=== PATIENT | male | born 1960 | race Caucasian/White ===

== ENCOUNTER 2022-01-03 09:01 | Inpatient (IN) | payer BC, SELFPAY ==
[2022-01-03] VITALS (9 sets, daily range): BP systolic 139–155; BP diastolic 84–96; PULSE 58–75; RESP 13–20; TEMP 36.2–36.9; O2SAT 93–100
--- NOTE | ~2022-01-03 | XR_ITS ---
EXAMINATION: XR chest 2V DATE: 01/03/2022 09:31 INDICATION: Chest pain and tightness. Right upper quadrant abdominal pain. TECHNIQUE: PA and lateral views of the chest were obtained. COMPARISON: Chest radiograph dated 11/24/2009 FINDINGS: Minimal biapical pleural-parenchymal scarring. No other airspace opacities, pulmonary edema, pleural effusion or pneumothorax. The cardiomediastinal silhouette is normal. Tortuous thoracic aorta. Old po sterior right eighth rib fracture. Minimal anterior wedging of a few mid thoracic vertebral bodies. IMPRESSION: 1. No acute cardiopulmonary disease. Reviewed, dictated and finalized at location B.
--- NOTE | ~2022-01-03 | US_ITS ---
EXAMINATION: US abdomen limited EXAM DATE: 01/03/2022 09:52 INDICATION: Chest/abdominal pain. TECHNIQUE: Multiple grayscale and Doppler images of the abdomen right upper quadrant were obtained (b y a technologist who performed the scan) and subsequently reviewed. There is no prior study for tank christianson. FINDINGS: The pancreatic head and body are normal in appearance. The pancreatic tail is not visualized. The l iver has normal echogenicity and contour. There are no focal liver lesions identified. There is no evidence of intrahepatic biliary duct dilation. Portal venous flow was seen in the hepatopedal, nor mal direction and has normal Doppler waveform. No right-sided hydronephrosis. Common bile duct measures 9 mm, mildly dilated. The gallbladder wall measures 2-3 mm in thickness, wi thin normal limits, but with moderate amount of distention. No sonographic evidence of pericholecyst ic fluid. Multiple layering small gallstones. Technologist performing exam reports patient did not demonstrate sonographic Keller's sign. Please note that this sign is less reliable in patients who h ave received pain medication. IMPRESSION: Cholelithiasis. Moderately distended gallbladder and mild common bile duct dilation. No s onographic Keller sign demonstrated. Can't exclude choledocholithiasis, check bilirubin levels. Reviewed, dictated and finalized at location A. IMPRESSION: Cholelithiasis. Moderately distended gallbladder and mild common bi le duct dilation. No sonographic Keller sign demonstrated. Can't exclude choled ocholithiasis, check bilirubin levels.
--- NOTE | ~2022-01-03 | CT_ITS ---
EXAMINATION: CT abdomen pelvis w con DATE: 01/03/2022 11:27 INDICATION: Epigastric and right upper quadrant abdominal pain. Acute pancreatitis. TECHNIQUE: Computed tomography (CT) of the abdomen and pelvis was performed with 100 mL Omnipaque 350 intravenous contrast. Automated exposure control and iterative reconstruction technique were employe d. The dose-length product was 456.97 mGy-cm. COMPARISON: Ultrasound 01/03/2022 FINDINGS: The visualized portions of the lung bases demonstrate mild atelectasis. No pleural effusion . The heart size is normal. No pericardial effusion. There is a 5 mm cyst in the liver. The gallbladd er is distended. Gallbladder wall thickening is noted. Gallstones were seen on today's ultrasound. Th e common duct is dilated to 10 mm. Calcifications in the spleen are consistent with old granulomatous disease. The pancreas, adrenal glands, and kidneys are normal. The prostate is mildly enlarged. Ther e are no dilated loops of bowel. The appendix is normal. There are no pathologically enlarged lymph n odes. There is no free intraperitoneal fluid. There is severe degenerative disc disease at L5-S1. IMPRESSION: 1. Normal pancreas. 2. Mildly dilated common duct. 3. Acute cholecystitis. Reviewed, dictated and finalized at location A.
--- NOTE | ~2022-01-03 | MR_ITS ---
EXAMINATION: MR MRCP wo/w con/w 3D wo ind DATE: 01/03/2022 17:21 INDICATION: Gallstone pancreatitis. Abdominal pain. TECHNIQUE: Magnetic resonance imaging (MRI) of the abdomen was performed without and with 17 mL Multi Evans intravenous contrast. Sequences included coronal T2-weighted FS FSE, coronal T2-weighted FSE, a xial T1-weighted LAVA, coronal FS FIESTA, axial dual-echo T1-weighted SPGR, coronal lava-FLEX, sagitt al T2-weighted FSE, axial T2-weighted FSE, and axial DWI. Thick-slab T2-weighted FSE images were obta ined for magnetic resonance cholangiopancreatography (MRCP). Maximum intensity projection 3-D reconst ructions of the volumetric data were created by the technologist. Postcontrast sequences included cor onal LAVA-flex and time course of axial T1-weighted LAVA. COMPARISON: CT abdomen and pelvis 01/03/2022 FINDINGS: ABDOMEN MRI: There are cysts in the liver measuring up to 5 mm. There is periportal edema in the live r. The gallbladder is distended and contains gallstones. Gallbladder wall thickening is noted. There is edema around the lety hepatis and adjacent to the head of the pancreas. The pancreas enhances thr oughout. Calcifications in the spleen are consistent with old granulomatous disease. The adrenal glan ds and kidneys are normal. There is a 2.7 x 1.4 cm cyst between the inferior vena cava and aorta, lik bryanna a lymphangioma. There are no dilated loops of bowel. There are no pathologically enlarged lymph n odes. There is no free intraperitoneal fluid. ABDOMEN MRCP: The common duct measures 8 mm. No choledocholithiasis. IMPRESSION: 1. Acute cholecystitis. 2. Acute interstitial pancreatitis. 3. Mildly dilated common duct. No choledocholithiasis. Reviewed, dictated and finalized at location A.
--- NOTE | 2022-01-03 09:16 | ECG_ITS ---
Measurements Intervals [place] Rate: 59 P: 44 LA: 188 QRS: 4 QRSD: 101 T: 37 QT: 422 QTc: 421 Interpretive Statements SINUS BRADYCARDIA NO PREVIOUS ECG AVAILABLE FOR COMPARISON Electronically Signed On 01-03-2022 11:40:50 CDT by Austin Thayer M.D.
--- NOTE | 2022-01-03 09:25 | PC.NURSE ---
Pt to XRAY via stretcher at this time.
--- NOTE | 2022-01-03 09:31 | ED.CHESTPAIN ---
HPI - Chest Pain General Chief Complaint: Chest Pain Stated Complaint: abd pain, n/v Time Seen by Provider: 01/03/22 09:12 Source: patient and family Mode of arrival: ambulatory Limitations: no limitations History of Present Illness HPI narrative: 61-year-old male presents emergency room he is accompanied by his . He comes in because he been having these episodes of epigastric and chest discomfort. He has had approximately 4 episodes total of the one that occurred last night was a long as yet. He described it as a very heavy pressure across the anterior lower portion of his chest. He has no radiation of the pain into his back. He did get nauseated and vomited with the episodes. He believes it could be his gallbladder. His son had similar type symptoms and when they did an evaluation of him found out he had a very small cystic duct which was causing his problems and told him it could be hereditary. He denies any chills or fevers. He is extremely active man he walks 4 miles frequently every day of the week and never has symptoms he also rides his bicycle up to 15 to 50 miles at a time at a very high speed and never has any chest pain or shortness of breath associated with that. He is pain-free at this time. He never has any exertional chest pain. Has no food intolerances. His physician is retired he is currently does not have a physician. Related Data Allergies Allergy/AdvReac Type Severity Reaction Status Date / Time No Known Allergies Verified 01/03/22 09:06 Review of Systems Review of Systems: CONSTITUTIONAL: Denies fever, chills, or sweats. EYES: Denies visual changes, redness, or discharge. ENT: Denies rhinorrhea, congestion, sore throat, or otalgia. CARDIOVASCULAR: Denies palpitations, or edema. Chest pain associated with the symptoms he describing. RESPIRATORY: Denies cough or dyspnea. GASTROINTESTINAL: Has some nausea and vomiting. No diarrhea. Some epigastric pain. GENITOURINARY: Denies dysuria or hematuria. SKIN: Denies rash or itching. MUSCULOSKELETAL: Denies back pain, joint pain, or myalgia. NEUROLOGIC: Denies headache, numbness, or weakness. PSYCHIATRIC: Denies anxiety or depression. [facility] Past Medical History Medical History Hernia Family History Family History Mother Hypertension Social History Social History Smoking status: Never smoker Alcohol intake: never Exam Narrative: APPEARANCE: Well appearing, no pain or distress, well-nourished. Head normocephalic and atraumatic. EYES: PERRLA/EOMI, conjunctivae very clear. NOSE: Normal with no drainage EARS:TMS clear Francie Delaney, with good light reflex. THROAT: Pharynx clear, no exudate. NECK: Supple. No adenopathy, no masses. RESPIRATORY: Airway patent, respirations nonlabored. Clear to auscultation bilaterally, no rales, rhonchi, wheezing. CARDIOVASCULAR: Regular rate and rhythm without murmurs, rubs, or gallops. ABDOMINAL: Soft, nontender, nondistended, no hepatosplenomegaly Musculoskeletal: Moves all extremities. Strength/ROM intact, No edema, No calf tenderness. NEURO: Alert. Cranial nerves II through XII intact. Normal gait. Good coordination. Nonfocal examination. SKIN:: Warm, dry. Normal Color PSYCHIATRIC: Normal affect/mood, normal interaction Course Vital Signs Vital signs: Vital Signs Temperature 97.2 F L 01/03/22 09:04 Pulse Rate 75 01/03/22 09:04 Respiratory Rate 18 01/03/22 09:04 Blood Pressure 140/84 01/03/22 09:04 Pulse Oximetry 100 01/03/22 09:04 Temperature 97.2 F L 01/03/22 09:04 Pulse Rate 66 01/03/22 10:23 Respiratory Rate 18 01/03/22 10:23 Blood Pressure 139/90 01/03/22 10:23 Pulse Oximetry 97 01/03/22 10:23 MDM - Chest Pain MDM Narrative Medical decision making narrative: Patient's work-up and evaluation reveals h
[2022-01-03 09:39] LABS: Basophils Percent Auto 0.2 % (0.2-1.2); Eosinophils Absolute Auto 0.1 K/mm3 (0-0.3); Eosinophils Percent Auto 0.6 % (0-4.4); Hematocrit 41.6 % (42.0-52.0); Hemoglobin 13.8 g/dL (14.0-18.0); Immature Granulocyte Absolute 0.02 K/mm3 (0.00-0.031); Immature Granulocyte Percent A 0.2 % (0-0.5); Lymphocytes Absolute Auto 1.02 K/mm3 (0.9-3.2); Lymphocytes Percent Auto 12.1 % (18.3-44.2); Mean Corpuscular HGB Conc 33.2 g/dl (32-36); Mean Corpuscular Volume 93.5 fl (80-100); Mean Platelet Volume 11.7 fl (7.4-10.4); Monocytes Absolute Auto 0.9 K/mm3 (0.1-0.6); Monocytes Percent Auto 10.6 % (2.6-8.5); Neutrophils Absolute Auto 6.4 K/mm3 (1.3-6.7); Neutrophils Percent Auto 76.3 % (45.5-73.1); Platelet Count Result 165 k/mm3 (150-375); Red Blood Count 4.45 M/mm3 (4.6-6.20); Red Cell Distribution Width 12.4 % (11.5-14.5); White Blood Count 8.4 K/mm3 (4.5-10.0)
[2022-01-03 09:49] LABS: Prothrombin Time 12.9 Seconds (11.1-14.7)
[2022-01-03 09:50] LABS: Partial Thromboplastin Time 31.8 SECONDS (22.3-36.8)
[2022-01-03 10:02] LABS: Troponin I < 0.012 ng/mL (0.000-0.034)
[2022-01-03 10:09] LABS: Alanine Aminotransferase 167 U/L (4-50); Alkaline Phosphatase 77 U/L (38-126); Anion Gap 5 mmol/L (8-16); Aspartate Amino Transferase 227 U/L (17-59); Bilirubin,Total 2.3 mg/dL (0.2-1.3); Blood Urea Nitrogen 12 mg/dL (9-20); Calcium 8.3 mg/dL (8.4-10.2); Carbon Dioxide 31 mmol/L (22-30); Chloride 103 mmol/L (98-107); Estimated CRCL calculation 96 ml/min; Estimated Glomerular Filt Rate > 60; Glucose 100 mg/dL (65-110); Potassium 3.5 mmol/L (3.4-5.0); Sodium 139 mmol/L (137-145)
[2022-01-03 10:31] LABS: Lipase 10767 U/L (23-300)
[2022-01-03] MEDS: SODIUM CHLORIDE 0.9% IV 1,000 ML 150 ML IV CONT ×2 (11:34→23:43)
[2022-01-03 12:36] LABS: Troponin I < 0.012 ng/mL (0.000-0.034)
--- NOTE | 2022-01-03 13:15 | PM.IMHP ---
H&P: HPI History of Present Illness Date/Time: 01/03/22 13:15 Chief Complaint: Abdominal pain. Narrative: This is a very active and healthy 61-year-old male who presented to the emergency department for evaluation of abdominal pain. Last evening he developed a heaviness and pressure-like sensation in the low sternal region which has since settled into the epigastrium. It seems to be a bit colicky in nature and can get quite severe however he is able to find temporary positions that seem to ease the discomfort. He has also been experiencing chills and reports nausea with multiple episodes of emesis. He was able to fall asleep last night around 22:00 however the pain returned and woke him from sleep at approximately 02:30. He was able to drink a 10 oz coffee and eat a small piece of bread this morning. He then attempted to go to work however the pain returned and he was feeling pretty bad and thus he decided to come in for evaluation. He is suspicious that it may be his gallbladder causing him issues and in fact he and his have been trying to find a pattern as to when these episodes occur however they have not noticed that is directly related to meals although his pain did start shortly after eating beans and rice for dinner last evening. His vital signs were stable on arrival to the ER. Pertinent labs include a mild elevation in total bilirubin, modest AST and ALT elevations, and a lipase of 10,767. Abdominal ultrasound showed cholelithiasis and a moderately distended gallbladder with mild common bile duct dilatation. A subsequent CT of the abdomen and pelvis showed acute cholecystitis with a normal pancreas and a mildly dilated common duct and he is being admitted in this setting. At the time my evaluation he is resting comfortably and has no pain whatsoever. Review of Systems Review of Systems: Twelve systems were reviewed. No fever. He denies cold and flu symptoms. No sick contacts. No chest pain or shortness of breath. No syncope or presyncope. No history of cardiac or pulmonary disease. He is extremely active and walks about 4 miles every day and he frequently goes on long bike rides up to 50 miles at a time. Except as documented, all other systems were reviewed and are negative. [facility] Past Medical History Medical History Healthy adult Surgical History Surgical History History of right inguinal hernia repair (11/30/09) With PHS mesh. Family History Family History Mother Hypertension Son Gallbladder disease Social History Social History Social History: Lives with family in [place]. Works for [employer]. Very active including long walks and bike rides. Surrogate decision maker: Leelee Maldonadoclaribel, spouse. Code status: Full code. Smoking status: Never smoker Alcohol intake: never Alcohol use details: Rare Substance use: never Spiritual care concerns: No Meds Home Medications and Allergies Home Medications Medication Instructions Recorded Confirmed Type No Home Medications 01/03/22 01/03/22 History Allergies Allergy/AdvReac Type Severity Reaction Status Date / Time No Known Allergies Verified 01/03/22 13:16 Vital Signs Vital Signs - 24 hr 01/03/22 09:04 01/03/22 09:17 01/03/22 10:23 Temperature 97.2 F L Pulse Rate 75 68 66 Respiratory Rate 18 18 Blood Pressure 140/84 139/90 Pulse Oximetry 100 97 01/03/22 11:34 01/03/22 12:31 Temperature Pulse Rate 58 L 64 Respiratory Rate 13 16 Blood Pressure 155/96 H 145/94 H Pulse Oximetry 100 100 Exam Narrative: General: Well-developed male sitting up in bed in no distress. Weight: 86.1 kg. BMI: 24.4. HEENT: Normocephalic, atraumatic. PERRL, EOMI. Sclerae anicteric. Oral mucosa is mois
--- NOTE | 2022-01-03 13:29 | ADMGEN ---
This patient, Kodi Hammond, was admitted to Medical Room 341-01. Patient/family oriented to hospital policies and general routines including ID bracelet, bed and alarms, visiting hours, pain management, procedures, bathroom and other care routines, personal items, smoking policy, room service/diet, and visiting hours. Information on how to activate the Rapid Response Team has been discussed. Patient/Family are encouraged to report perceived risks to care and to ask questions if they do not understand what they are told or what they should do.
--- NOTE | 2022-01-03 14:18 | PM.CNGS ---
Assessment and Plan Assessment and plan (1) Acute cholecystitis: Code(s): K81.0 - Acute cholecystitis Status: Acute Assessment and Plan: CT scan suggests acute cholecystitis with mild common duct dilatation. US showed cholelithiasis with gallbladder distention. Discussed all imaging with patient in detail. His WBC count is normal and he is afebrile. His abdominal pain has resolved. Considering the elevated LFTs and dilated common bile duct, we would agree with MRCP and GI consult at this time. Continue IV antibiotics, IV fluids, and analgesics as needed. If his MRCP shows no choledocholithiasis and GI has no plans for ERCP, then we could potentially proceed with surgery tomorrow. If he will need an ERCP, then we will plan accordingly depending on how he does following the ERCP. I discussed this with the patient, as well as our recommendation of proceeding with a laparoscopic cholecystectomy, possible open, possible IOC by Dr. Bailey under general anesthesia depending on the MRCP results. Description of the procedure, risks, benefits, expected outcomes, and expected recovery were discussed with the patient in detail. All questions were answered. Patient agrees to proceed with surgery when appropriate. Thank you for allowing us to see the patient in consultation and we will continue to follow along with you. (2) Acute gallstone pancreatitis: Code(s): K85.10 - Biliary acute pancreatitis without necrosis or infection Status: Acute Assessment and Plan: Lipase 10,000 on admission. Clinically improved since admission with his abdominal pain and nausea resolving already in the ER. No previous or current heavy alcohol use. He does not take any medications daily. It is felt this is likely biliary pancreatitis with evidence of gallstones and elevated LFTs on admission. Continue NPO status while awaiting MRCP, IV fluids, analgesics, and antiemetics as needed. Trend labs. (3) Transaminitis: Code(s): R74.01 - Elevation of levels of liver transaminase levels Status: Acute Assessment and Plan: LFTs elevated on admission with total bilirubin of 2.3. MRCP ordered and GI has been consulted. Will await their recommendations regarding the need for ERCP prior to planning cholecytectomy. Additional Plan I have discussed the patient's case and plan of care with Dr. Bailey. History of Present Illness Consult details Consult date: 01/03/22 Reason for consult: gallstones (biliary pancreatitis, possible acute cholecystitis, elevated LFTs) Requesting physician: Erwin Rubio, DO Narrative: This is a 61-year-old male who presented to the ER with complaints of abdominal pain and vomiting. He reports that yesterday for lunch, he had stir-trujillo vegetables and noodles. Around 3:30 pm, he began having mild discomfort across his upper abdomen. He then had beans and rice for dinner, and shortly after this, his pain worsened and he began having chest pressure with severe upper abdominal pain. He developed nausea and vomiting around 10:00 pm last night as well. The pain continued through the night and was keeping him from sleeping, therefore he got up around 2:00 am and decided to go into work around 4:00 am. His nausea improved, but his pain was persistent. He tried eating a piece of bread at work with coffee, and reportedly still felt bad. He reports his then encouraged him to come into the ER for evaluation. He reports having a few episodes of this similar type of abdominal pain in the past that was more mild and resolved at home. In the ER, RUQ ultrasound showed cholelithiasis with gallbladder distention and the common bile duct measured 9 mm. Chest x-ray showed no acute cardiopulmonary disease. Labs showed a WBC count of 8,400, total bilirubin 2.3, AST 227, ALT 167, alk phos 77, and lipase 10,767. Subsequently, a CT scan of the abdomen and pelvis was ordered and showed mildly dilated common duct, gallbladder wall thickening and
[2022-01-03 15:43] LABS: Troponin I < 0.012 ng/mL (0.000-0.034)
[2022-01-04] VITALS (15 sets, daily range): BP systolic 135–160; BP diastolic 71–97; PULSE 54–87; RESP 12–18; TEMP 36.3–37.6; O2SAT 92–100; BMI 24.3
[2022-01-04 06:12] LABS: Hematocrit 42.6 % (42.0-52.0); Hemoglobin 14.2 g/dL (14.0-18.0); Mean Corpuscular HGB Conc 33.3 g/dl (32-36); Mean Corpuscular Hemoglobin 30.9 pg (26-34); Mean Corpuscular Volume 92.8 fl (80-100); Mean Platelet Volume 11.8 fl (7.4-10.4); Platelet Count Result 162 k/mm3 (150-375); Red Blood Count 4.59 M/mm3 (4.6-6.20); Red Cell Distribution Width 12.1 % (11.5-14.5); White Blood Count 5.8 K/mm3 (4.5-10.0)
[2022-01-04 06:24] LABS: Alanine Aminotransferase 129 U/L (4-50); Albumin Level 3.9 g/dL (3.5-5.1); Alkaline Phosphatase 84 U/L (38-126); Anion Gap 6 mmol/L (8-16); Aspartate Amino Transferase 80 U/L (17-59); Bilirubin,Total 1.2 mg/dL (0.2-1.3); Blood Urea Nitrogen 10 mg/dL (9-20); Calcium 8.3 mg/dL (8.4-10.2); Carbon Dioxide 28 mmol/L (22-30); Chloride 104 mmol/L (98-107); Estimated CRCL calculation 96 ml/min; Estimated Glomerular Filt Rate > 60; Glucose 86 mg/dL (65-110); Lipase 198 U/L (23-300); Potassium 3.6 mmol/L (3.4-5.0); Sodium 138 mmol/L (137-145)
[2022-01-04] MEDS: SODIUM CHLORIDE 0.9% IV 1,000 ML 150 ML IV CONT ×2 (08:08→21:09)
--- NOTE | 2022-01-04 10:05 | PM.PNGS ---
Progress Note: A&P Assessment and Plan (1) Acute cholecystitis: Code(s): K81.0 - Acute cholecystitis Status: Acute Assessment and Plan: Clinically improving. MRCP showed acute calculous cholecystitis, acute interstitial pancreatitis, and mildly dilated common duct with NO choledocholithiasis. Could have passed a stone. Lipase normal and LFTs trending down. Discussed results with the patient and will proceed with laparoscopic cholecystectomy, possible open, possible IOC, by Dr. Bailey today. No questions regarding surgery this morning, patient agrees to proceed. Continue NPO and IV antibiotics. (2) Acute gallstone pancreatitis: Code(s): K85.10 - Biliary acute pancreatitis without necrosis or infection Status: Acute Assessment and Plan: Resolving. Lipase down to normal today. No abdominal pain overnight or today. Will proceed with cholecystectomy today. (3) Transaminitis: Code(s): R74.01 - Elevation of levels of liver transaminase levels Status: Acute Assessment and Plan: LFTs trending down, bilirubin normal. MRCP showed no choledocholithiasis. Possibly passed stones or sludge. Could consider intraoperative cholangiogram, will proceed with surgery. Additional Plan I have discussed the patient's case and plan of care with Dr. Bailey. Subjective Subjective Date/Time Seen: 01/04/22 09:05 Patient reports: no new complaints, feels better and afebrile Interval history: Patient seen and examined. He denies any abdominal pain today. Denies nausea, vomiting, or bloating. He otherwise feels well and is actually hungry this morning. He has been NPO after midnight. No new complaints overnight. Review of Systems Review of Systems: All systems reviewed & are unremarkable except as noted in HPI and below Exam Const: General: comfortable, no acute distress and awake GI: Inspection: non-distended GI Palp: Yes Soft to palpation, No Tenderness to palpation present (GI), No Guarding due to palpation present (GI) and No Rebound tenderness present Auscultation: normal bowel sounds Neuro: General: moves all extremities and no focal motor deficits Extrem: General: normal to inspection Psych: Insight: Good insight present (Psych) Judgement: Good judgement present (Psych) Objective Data Vital Signs Vital Signs: Vital Signs - 24 hr 01/03/22 10:23 01/03/22 11:34 01/03/22 12:31 Temperature Pulse Rate 66 58 L 64 Respiratory Rate 18 13 16 Blood Pressure 139/90 155/96 H 145/94 H Pulse Oximetry 97 100 100 01/03/22 13:26 01/03/22 14:27 01/03/22 21:04 Temperature 98.4 F Pulse Rate 61 62 Respiratory Rate 20 17 Blood Pressure 155/87 H 139/91 H Pulse Oximetry 98 100 97 01/03/22 21:41 01/04/22 05:21 Temperature 98.6 F Pulse Rate 72 57 L Respiratory Rate 17 Blood Pressure 149/96 H Pulse Oximetry 93 97 Intake/Output Intake/Output: Intake & Output 01/01/22 01/02/22 01/03/22 01/04/22 23:59 23:59 23:59 23:59 Intake Total 950 1100 Balance 950 1100 Meds/Results Medications: Active Medications Generic Name Dose Route Start Last Admin Trade Name Freq PRN Reason Stop Dose Admin Piperacillin/Tazobactam/Dextrose 3.375 gm in 50 mls @ 100 mls/hr 01/03/22 18:00 01/04/22 05:49 Zosyn 3.375 Gm/D5w 50ml Pm IVPB Infused Q6H JAYJAY Infusion Sodium Chloride 1,000 mls @ 150 mls/hr 01/03/22 21:50 01/04/22 08:08 Normal Saline Iv IV CONT 150 mls/hr .[id number] JAYJAY Administration Morphine Sulfate 2 mg 01/03/22 13:27 Morphine Sulfate (*Crx) 2 Mg/Ml Inj IV PUSH Q4H PRN Pain Rated 7-10 Radiology Results: ITS Impressions Chest X-Ray 01/03/22 09:45 IMPRESSION: 1. No acute cardiopulmonary disease. Abdomen Ultrasound 01/03/22 09:55 IMPRESSION: Cholelithiasis. Moderately distended gallbladder and mild common bile duct dilation. No sonographic Keller sign demonstrated. Can't exclude choledocholithiasis, check bilirubin level
--- NOTE | 2022-01-04 11:15 | PM.IMPN ---
Progress Note: A&P Assessment and Plan (1) Acute cholecystitis: Code(s): K81.0 - Acute cholecystitis Status: Acute Assessment and Plan: Abd Ultrasound: Cholelithiasis. Moderately distended gallbladder and mild common bile duct dilation. No sonographic Keller sign demonstrated. Can't exclude choledocholithiasis, check bilirubin levels. Abd/Pel CT: mildly dilated common duct, acute cholecystitis, normal pancreas Abdomen MRI MRCP: Acute cholecystitis, Acute interstitial pancreatitis, Mildly dilated common duct. No choledocholithiasis. Continue Zosyn NPO for now Analgesics available as needed Surgery consulted and to manage post op care (2) Acute gallstone pancreatitis: Code(s): K85.10 - Biliary acute pancreatitis without necrosis or infection Status: Acute Assessment and Plan: Most likely biliary pancreatitis by history Continue IV fluids and bowel rest MRCP Acute cholecystitis, Acute interstitial pancreatitis, Mildly dilated common duct. No choledocholithiasis. GI consulted. (3) Transaminitis: Code(s): R74.01 - Elevation of levels of liver transaminase levels Status: Acute Assessment and Plan: Related to above. Trend Labs Time Spent With Patient Time with patient: 25 - 35 minutes Subjective Date/time seen: 01/04/22 11:15 Interval history: Date/Time: 01/03/22 13:15 Narrative: This is a very active and healthy 61-year-old male who presented to the emergency department for evaluation of abdominal pain. Last evening he developed a heaviness and pressure-like sensation in the low sternal region which has since settled into the epigastrium. It seems to be a bit colicky in nature and can get quite severe however he is able to find temporary positions that seem to ease the discomfort. He has also been experiencing chills and reports nausea with multiple episodes of emesis. He was able to fall asleep last night around 22:00 however the pain returned and woke him from sleep at approximately 02:30. He was able to drink a 10 oz coffee and eat a small piece of bread this morning. He then attempted to go to work however the pain returned and he was feeling pretty bad and thus he decided to come in for evaluation. He is suspicious that it may be his gallbladder causing him issues and in fact he and his have been trying to find a pattern as to when these episodes occur however they have not noticed that is directly related to meals although his pain did start shortly after eating beans and rice for dinner last evening. His vital signs were stable on arrival to the ER. Pertinent labs include a mild elevation in total bilirubin, modest AST and ALT elevations, and a lipase of 10,767. Abdominal ultrasound showed cholelithiasis and a moderately distended gallbladder with mild common bile duct dilatation. A subsequent CT of the abdomen and pelvis showed acute cholecystitis with a normal pancreas and a mildly dilated common duct and he is being admitted in this setting. At the time my evaluation he is resting comfortably and has no pain whatsoever. Date/Time 01/04/22 1115 patient was standing up on the side of bed when I went in today. He stated that he does not have any pain at the current moment. Liver enzymes are little Elevated. Patient does not know what happened to cause exacerbation. He did say that they are scheduling him for a cholecystectomy today. He denies any chest pain, shortness of breath, nausea, vomiting, diarrhea, constipation, weakness, or fatigue Review of Systems Review of Systems: All systems reviewed & are unremarkable except as noted in HPI and below Exam Const: General: cooperative, healthy appearing, no acute distress, well developed, alert and awake Nutritional Appearance: well nourished Orientation/consciousness: patient oriented x3 Limitations: no limitations HENMT: Head: normal to inspection Ears: hearing grossly normal
--- NOTE | 2022-01-04 12:42 | WPDHPUPDATE1 ---
History and Physical Update Update Date/Time: 01/04/22 12:42 History and Physical has been reviewed, including an updated exam of the patient. There are changes in the patient's condition. See progress notes and labs. This morning patient's lipase is normal and his total bilirubin is down to normal. MRCP showed no choledocholithiasis so patient is a good candidate to proceed with a laparoscopic cholecystectomy with possible open cholecystectomy. Risks, benefits, and alternatives of the above surgery have been discussed and questions answered. Patient and agrees to proceed with procedure.
[2022-01-04] MEDS: LACTATED RINGERS 1,000 ML 30 ML IV CONT ×2 (14:20→17:35)
--- NOTE | 2022-01-04 15:25 | WPDANESEPPF ---
Anes - Initial Pre Proc Eval Procedure: Operation Date: 01/04/22 15:30 Proposed Procedures p Laparoscopic Cholecystectomy, Possible Intra Operative Cholangiogram, Possible Open - Deon Bailey MD Date/Time: 01/04/22 15:25 Surgeon: Elías Bojorquez MD Pre Op Diagnosis: Gallstone Pancreatitis, Cholecystitis Patient Data Age: 61 Gender: M Height: 1.88 m Weight: 85.4 kg Last Vital Signs Temp 37.6 C 01/04/22 14:34 Pulse 69 01/04/22 14:34 Resp 16 01/04/22 14:34 BP 154/91 H 01/04/22 14:34 Pulse Ox 98 01/04/22 14:34 Allergies Allergy/AdvReac Type Severity Reaction Status Date / Time No Known Allergies Verified 01/04/22 14:31 Home Medications Medication Instructions Recorded Confirmed Type No Home Medications 01/03/22 01/03/22 History Laboratory Tests 01/03/22 01/04/22 01/04/22 15:16 05:45 05:45 WBC 5.8 K/mm3 K/mm3 (4.5-10.0) RBC 4.59 M/mm3 L M/mm3 (4.6-6.20) Hgb 14.2 g/dL g/dL (14.0-18.0) Hct 42.6 % % (42.0-52.0) MCV 92.8 fl fl (80-100) MCH 30.9 pg pg (26-34) MCHC 33.3 g/dl g/dl (32-36) RDW 12.1 % % (11.5-14.5) Plt Count 162 k/mm3 k/mm3 (150-375) MPV 11.8 fl H fl (7.4-10.4) Sodium 138 mmol/L mmol/L (137-145) Potassium 3.6 mmol/L mmol/L (3.4-5.0) Chloride 104 mmol/L mmol/L (98-107) Carbon Dioxide 28 mmol/L mmol/L (22-30) Anion Gap 6 mmol/L L mmol/L (8-16) BUN 10 mg/dL mg/dL (9-20) Creatinine 0.80 mg/dL mg/dL (0.7-1.3) Estim Creat Clear Calc 96 ml/min ml/min Estimated GFR > 60 (59 - ) Glucose 86 mg/dL mg/dL (65-110) Calcium 8.3 mg/dL L mg/dL (8.4-10.2) Magnesium 2.0 mg/dL mg/dL (1.6-2.3) Total Bilirubin 1.2 mg/dL mg/dL (0.2-1.3) AST 80 U/L H U/L (17-59) ALT 129 U/L H U/L (4-50) Alkaline Phosphatase 84 U/L U/L (38-126) Troponin I < 0.012 ng/mL ng/mL (0.000-0.034) Total Protein 7.0 g/dL g/dL (6.3-8.2) Albumin 3.9 g/dL g/dL (3.5-5.1) Lipase 198 U/L U/L (23-300) Blood Type Antibody Screen 01/04/22 10:48 WBC RBC Hgb Hct MCV MCH MCHC RDW Plt Count MPV Sodium Potassium Chloride Carbon Dioxide Anion Gap BUN Creatinine Estim Creat Clear Calc Estimated GFR Glucose Calcium Magnesium Total Bilirubin AST ALT Alkaline Phosphatase Troponin I Total Protein Albumin Lipase Blood Type AB Positive Antibody Screen Negative Patient hx anesthesia problems: none Family hx anesthesia problems: none Results Review: All pre-operative results and documents have been reviewed as part of the pre-operative evaluation. [facility] Past Medical History Medical History Healthy adult Surgical History Surgical History History of right inguinal hernia repair (11/30/09) With PHS mesh. Family History Family History Mother Hypertension Son Gallbladder disease Social History Social History Social History: Lives with family in [place]. Works for [employer]. Very active including long walks and bike rides. Surrogate decision maker: Leelee Hammond, spouse. Code status: Full code. Smoking status: Never smoker Alcohol intake: never Alcohol use details: Rare Substance use: never Spiritual care concerns: No Anes - Eval Final PreProcedure Day of Procedure 01/04/22 15:25
--- NOTE | 2022-01-04 15:34 | WPDGICN ---
Assessment and Plan Assessment and plan (1) Acute gallstone pancreatitis: Code(s): K85.10 - Biliary acute pancreatitis without necrosis or infection Status: Acute Assessment and Plan: improvement of liver enzymes, most likely already passed a stone which is confirmed by MRCP will have cholecystectomy (2) Acute cholecystitis: Code(s): K81.0 - Acute cholecystitis Status: Acute Assessment and Plan: by surgery doing much better (3) Transaminitis: Code(s): R74.01 - Elevation of levels of liver transaminase levels Status: Acute Assessment and Plan: improving (4) Upper abdominal pain: Code(s): R10.10 - Upper abdominal pain, unspecified Status: Acute Assessment and Plan: resolved (5) Nausea & vomiting: Code(s): R11.2 - Nausea with vomiting, unspecified Status: Acute (6) Colon cancer screening: Code(s): Z12.11 - Encounter for screening for malignant neoplasm of colon Status: Acute Assessment and Plan: never had a colonoscopy encourage to set up one as outpatient, he will let us know if interested GI Consult Note Consult date/time: 01/04/22 15:34 Reason for consult: gallstone pancreatitis HPI: Kodi Hammond is a 61 year old male who has been having intermittent abdominal pain for last 4 months mostly after eating. He has been in a plant based diet. He came here with severe pain in upper abdomen with radiation to chest then developed nausea and finally decided to come here. He had RUQ ultrasound, reviewed and showed cholelithiasis with gallbladder distention and the common bile duct measured 9 mm. Chest x-ray showed no acute cardiopulmonary disease. Labs showed a WBC count of 8,400, total bilirubin 2.3, AST 227, ALT 167, alk phos 77, and lipase 10,767. CT scan of the abdomen and pelvis was ordered and showed mildly dilated common duct, gallbladder wall thickening and distention, and a normal pancreas. Today is feeling much better and had MRCP that showed acute cholecystitis, acute interstitial pancreatitis and mildly dilated common duct. No choledocholithiasis. Today lipase normal and improvement of liver enzymes. Surgery is planning to do cholecystectomy. Denies alcohol use, no previous episode of pancreatitis. Review of Systems Constitutional: Constitutional: Denies lethargy Eyes: Eyes: Denies blurry vision ENT: Reports Normal hearing present Cardiovascular: Cardiovascular: Reports chest pain Respiratory: Respiratory: Denies cough Gastrointestinal: Gastrointestinal: Reports abdominal pain and Reports nausea Genitourinary: Genitourinary: Denies dysuria Musculoskeletal: Musculoskeletal: Denies neck pain Integumentary/Breasts: Skin/Breast: Denies dry skin Neurologic: Denies headache(s) Psychiatric: Psychiatric: Reports no additional psychiatric complaints [facility] Past Medical History Medical History (Updated 01/04/22 @ 15:39 by Jude Nichols MD) Colon cancer screening Healthy adult Nausea & vomiting Upper abdominal pain Surgical History Surgical History History of right inguinal hernia repair (11/30/09) With PHS mesh. Family History Family History Mother Hypertension Son Gallbladder disease Social History Social History Social History: Lives with family in [place]. Works for [employer]. Very active including long walks and bike rides. Surrogate decision maker: Leelee Hammond, spouse. Code status: Full code. Smoking status: Never smoker Alcohol intake: never Alcohol use details: Rare Substance use: never Spiritual care concerns: No Meds Home Medications and Allergies Home Medications Medication Instructions Recorded Confirmed Type No Home Medications 01/03/22 01/03/22 History
--- NOTE | 2022-01-04 17:30 | W.PM.PROC2 ---
Procedure Note - Detailed Date of Procedure 01/04/22 Pre-op Diagnosis 1. Acute Cholecystitis with cholelithiasis 2. 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 MRCP last evening showed interstitial pancreatitis without signs of abscess or significant interstitial fluid. There were stones in the gallbladder wall with thickening of the gallbladder wall consistent with acute cholecystitis but no choledocholithiasis. Therefore, we discussed the risks benefits possible complications of a laparoscopic cholecystectomy with the patient his and he wished to proceed. Findings There were significant adhesions up and down the inferior surface of abdominal cavity side of the gallbladder. The cystic duct was somewhat dilated but easy to dissect. The gallbladder itself was abnormally colored slightly off yellow color. There were changes consistent with his previous right inguinal hernia repair in the pelvic area. Description of Procedure Patient was seen preoperatively in the holding area and risks, benefits and alternatives confirmed. Patient was taken to the operating room and general anesthesia was induced. A time out was then preformed with the surgery team confirming patient and site of surgery. The abdomen was prepped and draped in the usual sterile fashion. Incision was made just below the umbilicus with an 11 blade knife. I placed 2 stay sutures of O- Vicryl on either side of the mid-line fascia beneath the umbilicus and was then able to slide in the [place] cannula through the fascial defect into the peritoneum. First under low flow and then under high flow the abdomen was insufflated with carbon dioxide never exceeding a pressure of 14. Three 5 mm trocars were then introduced under direct vision. The following trocars were introduced under direct vision: a 5 mm in the epigastrium and two 5 mm trocars along the right costal margin laterally in the subcostal area. There were significant omental adhesions to the underside of the gallbladder. These were taken down with blunt and sharp dissection using some Bovie cautery for hemostasis. We were able to dissect this completely away from the neck of the gallbladder. I then carefully used the L-shaped cautery and the [place] dissector to dissect out the triangle of [place]. I then was able to dissect out both the cystic duct and cystic artery and identify a window of safety. The gall bladder was grasped and the cystic duct and artery were dissected free and clipped with an 5 mm endo-clip prototype fabricator. The cystic duct and artery were clipped with use of 2 clips on the patient's side 1 on the gallbladder side utilizing a 5 mm endoclip-prototype fabricator. The cystic duct was then transected. The cystic artery was also transected at this point. The gall bladder was removed using electrocautery and then removed from the abdomen using a large 10 mm grasper via the umbilical incision. The trocars were removed visualizing hemostasis and the remaining gas evacuated. The large trocar site at the umbilicus was closed with use of the 2 stay sutures of 0 Vicryl mentioned above and also a figure of 8 O-Vicryl suture. The 2 stay sutures mentioned above on either side of the fascia were also tied together to help approximate this midline fascia. Further local anesthetic was placed into each incision for postop pain control. The skin incisions were closed with subcuticular suture of 4-0 Monocryl. Surgical glue then was applied to all the incisions. Patient tolerated the procedure well was taken to the recovery room in good condition. Implants none Estimated Blood Loss 20 Drains No Packing No Pathology Yes (Gallbladder) Complications No immediate complications Condition Stable Disposit
--- NOTE | 2022-01-04 17:58 | SUR.PHASEI ---
1751: Simple mask removed. 1757: Glasses applied in PACU.
[2022-01-04] MEDS: HYDROcodone/acetaminophen (*CRX) 7.5-325 MG TABLET 1 TAB PO (20:23)
[2022-01-04] MEDS: SENNA/DOCUSATE SODIUM TABLET 2 TAB PO (22:00)
[2022-01-05] MEDS: SODIUM CHLORIDE 0.9% IV 1,000 ML 150 ML IV CONT ×2 (03:56→08:24)
[2022-01-05 05:35] LABS: Hematocrit 39.7 % (42.0-52.0); Hemoglobin 13.3 g/dL (14.0-18.0); Mean Corpuscular HGB Conc 33.5 g/dl (32-36); Mean Corpuscular Hemoglobin 31.4 pg (26-34); Mean Corpuscular Volume 93.9 fl (80-100); Mean Platelet Volume 11.5 fl (7.4-10.4); Platelet Count Result 146 k/mm3 (150-375); Red Blood Count 4.23 M/mm3 (4.6-6.20); Red Cell Distribution Width 12.2 % (11.5-14.5)
[2022-01-05 05:39] LABS: Alanine Aminotransferase 129 U/L (4-50); Albumin Level 3.6 g/dL (3.5-5.1); Alkaline Phosphatase 70 U/L (38-126); Anion Gap 7 mmol/L (8-16); Aspartate Amino Transferase 82 U/L (17-59); Bilirubin,Total 0.7 mg/dL (0.2-1.3); Blood Urea Nitrogen 10 mg/dL (9-20); Carbon Dioxide 25 mmol/L (22-30); Chloride 105 mmol/L (98-107); Estimated CRCL calculation 96 ml/min; Estimated Glomerular Filt Rate > 60; Glucose 92 mg/dL (65-110); Lipase 25 U/L (23-300); Potassium 4.3 mmol/L (3.4-5.0); Sodium 137 mmol/L (137-145)
[2022-01-05 05:50] VITALS: BP 158/87; PULSE 60; RESP 16; TEMP 36.6; O2SAT 98
[2022-01-05 08:37] VITALS: BP 166/90; PULSE 62; RESP 20; TEMP 36.2; O2SAT 97
--- NOTE | 2022-01-05 09:54 | PM.PNGS ---
Progress Note: A&P Assessment and Plan (1) Acute cholecystitis: Code(s): K81.0 - Acute cholecystitis Status: Acute Assessment and Plan: Okay to discharge from our standpoint. Doing well POD#1. Continue low fat diet x 2 weeks. Follow-up with Dr. Bailey in 2 weeks in the office. (2) Acute gallstone pancreatitis: Code(s): K85.10 - Biliary acute pancreatitis without necrosis or infection Status: Acute Assessment and Plan: Lipase remains normal today. Resolved. See plan above. (3) Transaminitis: Code(s): R74.01 - Elevation of levels of liver transaminase levels Status: Acute Assessment and Plan: AST and ALT about the same today, total bilirubin down. MRCP showed no choledocholithiasis. See plan above. Additional Plan I have discussed the patient's case and plan of care with Dr. Bailey. Subjective Subjective Date/Time Seen: 01/05/22 09:54 Post Op day: 1 (laparoscopic cholecystectomy) Patient reports: no new complaints, tolerating a regular diet (low fat), voiding w/o difficulty, flatus, no bowel movement and afebrile Interval history: Patient seen and examined. He reports feeling well today. Pain is controlled. He did take one [place] last night and felt groggy but did feel that it helped his pain. No nausea or vomiting. Tolerating walking in the room and tolerating his diet. Review of Systems Review of Systems: All systems reviewed & are unremarkable except as noted in HPI and below Constitutional: Constitutional: Reports as per HPI, Reports no additional constitutional complaints, Denies chills and Denies fever(s) Cardiovascular: Cardiovascular: Reports no additional cardiovascular complaints, Denies chest pain and Denies leg edema Respiratory: Respiratory: Reports no additional respiratory complaints, Denies cough and Denies dyspnea Gastrointestinal: Gastrointestinal: Reports as per HPI and Reports no additional gastrointestinal complaints Neurologic: Reports system reviewed and no additional complaints, except as documented, Denies Abnormal speech present and Denies focal weakness Exam Const: General: comfortable, no acute distress, alert and awake Orientation/consciousness: patient oriented x3 GI: Inspection: non-distended and incision (Abdominal incisions clean and dry, glue intact.) GI Palp: Yes Soft to palpation and Yes Tenderness to palpation present (GI) (incisional) Auscultation: normal bowel sounds Skin: General skin exam: normal color Neuro: General: moves all extremities and no focal motor deficits Extrem: General: no clubbing, cyanosis or edema and no calf tenderness Psych: Insight: Good insight present (Psych) Judgement: Good judgement present (Psych) Objective Data Vital Signs Vital Signs: Vital Signs - 24 hr 01/04/22 14:34 01/04/22 17:23 01/04/22 17:35 Temperature 99.6 F 97.8 F Pulse Rate 69 62 54 L Respiratory Rate 16 12 18 Blood Pressure 154/91 H 140/84 142/71 H Pulse Oximetry 98 98 100 01/04/22 17:50 01/04/22 18:05 01/04/22 18:20 Temperature Pulse Rate 56 L 65 80 Respiratory Rate 16 12 14 Blood Pressure 143/88 H 160/97 H Pulse Oximetry 100 98 100 01/04/22 18:35 01/04/22 18:55 01/04/22 19:10 Temperature 97.6 F 97.6 F Pulse Rate 71 76 70 Respiratory Rate 16 18 16 Blood Pressure 149/87 H 151/85 H 153/87 H Pulse Oximetry 96 94 92 01/04/22 19:50 01/04/22 19:52 01/04/22 20:00 Temperature 98.4 F Pulse Rate 86 73 73 Respiratory Rate 16 16 Blood Pressure 152/91 H Pulse Oximetry 92 97 97 01/04/22 21:33 01/04/22 23:45 01/05/22 05:50 Temperature 97.6 F 97.3 F L 97.9 F Pulse Rate 87 76 60 Respiratory Rate 16 15 16 Blood Pressure 144/86 H 135/80 158/87 H Pulse Oximetry 96 95 98 01/05/22 08:37 Temperature 97.1 F L Pulse Rate 62 Respiratory Rate 20 Blood Pressure 166/90 H Pulse Oximetry 97 Intake/Output Intake/Output: Intake & Output 01/02/22 01/03/22 01/04/22 01/05/22 23:59 23:5
--- NOTE | 2022-01-05 12:15 | PM.DS ---
DS: Admitting Diagnosis Discharge Date 01/05/22 1215 Admitting Diagnosis Acute cholecystitis DS: Discharge Diagnosis Discharge Diagnosis (1) Acute cholecystitis: Code(s): K81.0 - Acute cholecystitis Status: Acute Assessment and Plan: Abd Ultrasound: Cholelithiasis. Moderately distended gallbladder and mild common bile duct dilation. No sonographic Keller sign demonstrated. Can't exclude choledocholithiasis, check bilirubin levels. Abd/Pel CT: mildly dilated common duct, acute cholecystitis, normal pancreas Abdomen MRI MRCP: Acute cholecystitis, Acute interstitial pancreatitis, Mildly dilated common duct. No choledocholithiasis. Continue Zosyn NPO for now Analgesics available as needed Surgery consulted and to manage post op care (2) Acute gallstone pancreatitis: Code(s): K85.10 - Biliary acute pancreatitis without necrosis or infection Status: Acute Assessment and Plan: Most likely biliary pancreatitis by history Continue IV fluids and bowel rest MRCP Acute cholecystitis, Acute interstitial pancreatitis, Mildly dilated common duct. No choledocholithiasis. GI consulted. (3) Transaminitis: Code(s): R74.01 - Elevation of levels of liver transaminase levels Status: Acute Assessment and Plan: Related to above. Trend Labs DS: Summary Hospital Course Hospital Course: patient is a 61-year-old male with No significant past medical history that came to the ED with complaints of severe abdominal pain. Abdominal ultrasound was found cholelithiasis with a mildly distended gallbladder. CT did show normal pancreas with a dilated common bile duct and acute cholecystitis. MRI showed patency with the common bile duct. Lipase was elevated upon arrival and has been trending down. AST ALT is also been elevated and has also been trending down as well. Patient denies any chest pain, shortness of breath, nausea, vomiting, diarrhea, constipation, weakness or fatigue. Patient did have surgical procedure done and a cholecystectomy was performed. Patient is stable for discharge at this time per surgery and general Medicine. Patient will follow-up at his scheduled appointment with General surgery. Status at Discharge Overall status at discharge: patient is progressing back to baseline Time Spent with Patient Time attestation: Total time spent providing and/or coordinating discharge services: 32 minutes Time spent: Greater than 30 minutes Specific discharge activities: Diagnostic testing, chart review, developing a treatment plan, education, care coordination documentation, physical exam, result review Exam Const: General: cooperative, healthy appearing, no acute distress, well developed, alert and awake Nutritional Appearance: well nourished Orientation/consciousness: patient oriented x3 Limitations: no limitations HENMT: Head: normal to inspection Ears: hearing grossly normal bilaterally General nose exam: Normal external nose present Mouth: Yes Normal oral and palatal mucosa present, Yes lip normal and Yes tongue normal Teeth and gingiva: abnormal tooth and associated gingiva and poor dentition Eyes: General: appearance normal, both eyes and all related structures Neck: Neck: normal visual inspection, full ROM, trachea midline and supple Chest: Chest palpation & inspection: normal inspection of the chest Resp: Effort & Inspection: normal respiratory effort and able to speak in complete sentences Auscultation: clear to auscultation bilaterally Cardio: Jugular venous distension: no JVD Rate: regular rate Rhythm: regular rhythm Heart sounds: S1 normal heart sound present and S2 normal heart sound present Peripheral pulses: Peripheral pulses 2+ throughout GI: Inspection: other (4 small surgical sites with glue) Auscultation: normal bowel sounds Skin: General skin exam: normal color and no rashes or lesions noted Lesions: no lesions R
== END 2022-01-05 13:45 | disposition home or self-care (01) | DRG 418 ==
LOC: ANHED 09:56 → ANH3MED 13:34
PROVIDERS: Physician Assistant; Surgery; Admitting Provider Internal Medicine; Emergency Provider Emergency Medicine; Visit Provider Nurse Practitioner
PROC: 0FT44ZZ Resection of Gallbladder, Percutaneous Endoscopic Approach (ICD-10-PCS; CPT 47562; principal; 2022-01-04 15:30)
DX: K85.10 Biliary acute pancreatitis without necrosis or infection (principal); K80.00 Calculus of gallbladder with acute cholecystitis without obstruction; K85.80 Other acute pancreatitis without necrosis or infection
CPT/HCPCS: 36415; 71046; 74177; 74183; 76376; 76705; 80053; 83690; 83735; 84484; 85025; 85027; 85610; 85730; 86850; 86900; 86901; 88304; 93005; 99285; A9270; A9577; J1100; J1170; J2250; J2405; J2543; J2704; J2710; J3010; J7030; J7120; Q9966; Q9967

== ENCOUNTER 2022-01-13 07:48 | Outpatient (CLI) | payer BC, SELFPAY ==
[2022-01-13 08:07] LABS: Basophils Percent Auto 0.6 % (0.2-1.2); Eosinophils Absolute Auto 0.2 K/mm3 (0-0.3); Eosinophils Percent Auto 2.8 % (0-4.4); Hematocrit 39.7 % (42.0-52.0); Immature Granulocyte Absolute 0.01 K/mm3 (0.00-0.031); Immature Granulocyte Percent A 0.2 % (0-0.5); Lymphocytes Absolute Auto 1.16 K/mm3 (0.9-3.2); Lymphocytes Percent Auto 21.4 % (18.3-44.2); Mean Corpuscular HGB Conc 32.7 g/dl (32-36); Mean Corpuscular Hemoglobin 31.1 pg (26-34); Mean Platelet Volume 10.9 fl (7.4-10.4); Monocytes Absolute Auto 0.6 K/mm3 (0.1-0.6); Monocytes Percent Auto 10.7 % (2.6-8.5); Neutrophils Absolute Auto 3.5 K/mm3 (1.3-6.7); Neutrophils Percent Auto 64.3 % (45.5-73.1); Platelet Count Result 189 k/mm3 (150-375); Red Blood Count 4.18 M/mm3 (4.6-6.20); Red Cell Distribution Width 12.1 % (11.5-14.5); White Blood Count 5.4 K/mm3 (4.5-10.0)
[2022-01-13 08:19] LABS: Hemoglobin A1C 5.3 % (<5.7)
[2022-01-13 09:00] LABS: Prostate Specific Antigen 1.3 ng/mL (< OR = 4.0)
[2022-01-13 09:07] LABS: Free T4 Free Thyroxine 1.09 ng/mL (0.78-2.19); Vitamin D 25 Hydroxy 32.1 ng/mL
[2022-01-13 09:09] LABS: Alanine Aminotransferase 38 U/L (4-50); Albumin Level 3.6 g/dL (3.5-5.1); Alkaline Phosphatase 68 U/L (38-126); Anion Gap 5 mmol/L (8-16); Aspartate Amino Transferase 33 U/L (17-59); Bilirubin,Total 0.3 mg/dL (0.2-1.3); Blood Urea Nitrogen 18 mg/dL (9-20); Calcium 8.6 mg/dL (8.4-10.2); Carbon Dioxide 31 mmol/L (22-30); Chloride 104 mmol/L (98-107); Cholesterol 122 mg/dL (0-200); Estimated Glomerular Filt Rate > 60; Glucose 94 mg/dL (65-110); HDL Direct 33 mg/dL; Sodium 140 mmol/L (137-145); Triglycerides 56 mg/dL (<150)
[2022-01-13 09:20] LABS: LDL Cholesterol Direct 55 mg/dL
== END 2022-01-13 07:49 | disposition home or self-care (01) ==
LOC: ANHLAB 07:49
PROVIDERS: PCP Family Medicine; Visit Provider Family Medicine
DX: R10.10 Upper abdominal pain, unspecified (principal); Z13.220 Encounter for screening for lipoid disorders; Z12.5 Encounter for screening for malignant neoplasm of prostate; R73.9 Hyperglycemia, unspecified; R53.83 Other fatigue; E55.9 Vitamin D deficiency, unspecified
CPT/HCPCS: 36415; 80053; 80061; 82306; 83036; 84153; 84439; 84443; 85025; G0103